=== PATIENT | female | born 1995 | race Two or more races ===

== ENCOUNTER 2023-08-06 16:21 | Emergency (ER) | payer OTHER ==
[~2023-08-06] VITALS: Ht 170.2 cm; Wt 76.2 kg
[2023-08-06] MEDS ORDERED: PRENATABS FA T1 EACH (16:29)
[2023-08-06] MEDS ORDERED: IPRATROPIUM BROMIDE 0.5 MG/2.5 ML AMPUL.NEB IH STA (16:51)
[2023-08-06] MEDS ORDERED: BUDESONIDE 0.5 MG/2 ML AMPUL.NEB IH STA (16:51)
[2023-08-06] MEDS ORDERED: GUAIFENESIN 200 MG/10 ML BLIST.PACK PO STA (16:51)
[2023-08-06 17:25] LABS: HEMATOCRIT 36.2 % (36.0-45.00); HEMOGLOBIN 12.1 g/dL (12.0-15.00); MEAN CORPUSCULAR HEMOGLOBIN 26.4 pg (27.00-32.0); MEAN CORPUSCULAR HGB CONC 33.4 g/dl (32.0-36.0); PLATELET COUNT 294 K/uL (150-450); RED BLOOD COUNT 4.59 M/uL (4.00-6.00); RED CELL DISTRIBUTION WIDTH 13.3 % (11.5-14.5)
[2023-08-06 18:25] LABS: URINE APPEARANCE Clear; URINE BILIRRUBIN Negative (NEGATIVE); URINE BLOOD Negative; URINE COLOR Yellow; URINE GLUCOSE Negative (NEGATIVE); URINE LEUKOCYTE Small; URINE NITRATE Negative; URINE PROTEIN Negative (NEGATIVE); URINE UROBILINOGEN 0.2 E.U./dl
[2023-08-06 18:29] LABS: URINE BACTERIA 9327.7 uL (0.0-1933); URINE EPITHELIAL CELLS 42.9 uL (0.0-38.8); URINE RBC 24.4 uL (0.0-20.8); URINE WBC 89.6 uL (0.0-23.2)
[2023-08-06] MEDS ORDERED: CEFAZOLIN SODIUM 1,000 MG VIAL IM STA (19:20)
== END 2023-08-06 20:04 | disposition home or self-care (01) ==
LOC: ER 16:22
PROVIDERS: General Practice
DX: O23.40 Unspecified infection of urinary tract in pregnancy, unspecified trimester (principal); Z3A.18 18 weeks gestation of pregnancy; R05.9 Cough, unspecified; Z20.822 Contact with and (suspected) exposure to COVID-19